=== PATIENT | female | born 1945 | race Caucasian/White ===

== ENCOUNTER 2018-02-25 17:40 | Emergency (ER) | payer MEDICARE, OTHER ==
[2018-02-25] MEDS ORDERED: Lidocaine 1% 30 ML SDV INFILT ONE (17:41)
[2018-02-25] MEDS ORDERED: Diphtheria,Pertussis(Acell),Tetanus Vaccine 0.5 ML SDV IM ONE (17:42)
--- NOTE | 2018-02-25 17:46 | EDM.PDOC ---
ED HPI GENERAL MEDICAL PROBLEM - General Chief Complaint: Lower Extremity Injury/Pain Stated Complaint: FELL-RT KNEE LACERATION Time Seen by Provider: 02/25/18 17:43 Source of Information: Reports: Patient History Limitations: Reports: No Limitations - History of Present Illness INITIAL COMMENTS - FREE TEXT/NARRATIVE: Patient tripped and fell in her garage, sustained a large right knee laceration and a right elbow skin tear. Tetanus booster is not up to date. Complains of right knee pain. S/p right TKR. No other injuries. Onset: Today Location: Reports: Lower Extremity, Right Quality: Reports: Dull Severity: Moderate Right knee Pain Score (Numeric/FACES): 5 - Related Data Allergies Allergy/AdvReac Type Severity Reaction Status Date / Time Penicillins Allergy Rash Verified 02/25/18 17:43 Home Meds: Home Meds Calcium Carbonate/Vitamin D3 [Calcium 500-Vit D3 200 Tablet] 1 each PO BIDM 02/06 [History] Cholecalciferol (Vitamin D3) [Vitamin D3] 2,000 units PO DAILY 11/06/12 [History ] Clotrimazole/Betamethasone Dip [Clotrimazole-Betamethasone Crm] 1 applic TOP DAILY PRN 11/06/12 [History] Cyanocobalamin (Vitamin B-12) [Vitamin B-12] 1,000 mcg IM Q30D 11/06/12 [History ] Ferrous Sulfate [Iron] 325 mg PO BID 11/06/12 [History] Lisinopril/Hydrochlorothiazide [Lisinopril-Hctz 20-25 mg Tab] 1 each PO DAILY [History] Lutein 20 mg PO DAILY 11/06/12 [History] Multivitamin [Multivitamins] 1 caplet PO DAILY 11/06/12 [History] PARoxetine [Paxil] 40 mg PO DAILY 11/06/12 [History] Zolpidem [Ambien] 10 mg PO BEDTIME PRN 11/06/12 [History] Acetaminophen/Butalbital/Caff [Fioricet 325-50-40 MG] 1 tab PO Q6H PRN 08/08/13 [History] Furosemide [Lasix] 20 mg PO DAILY 08/08/13 [History] Nystatin 1 applic TOP QID PRN 08/08/13 [History] PEG 400/Propylene Glycol [Systane Lubricant Gel] 1 drop EYEBOTH ASDIRECTED PRN 08/08/13 [History] buPROPion HCl [Wellbutrin Xl] 150 mg PO DAILY 08/08/13 [History] Aspirin [Low Dose Aspirin EC] 81 mg PO DAILY 11/22/14 [History] Ciprofloxacin HCl [Cipro] 500 mg PO BID 11/22/14 [History] Oxybutynin 5 mg PO TID PRN 11/22/14 [History] Meloxicam [Mobic] 15 mg PO DAILY 11/23/14 [History] Cephalexin [Keflex] 500 mg PO TID #30 capsule 02/25/18 [Rx] Past Medical History Other Cardiovascular History: SOB LAST SUMMER, WAS CHECKED OUT IN [place] W/ CARDIAC WORKUP ET EVERYTHING WAS NEGATIVE, NO REASON FOR THE SOB FOUND Other Respiratory History: PULMONARY EMBOLI Other ACID LEVELER History: D&C X 2 Other Musculoskeletal History: 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 ED EXAM, GENERAL - Physical Exam Exam: See Below Exam Limited By: No Limitations General Appearance: Alert, WD/WN, No Apparent Distress Ears: Normal External Exam Nose: Normal Inspection Throat/Mouth: No Airway Compromise Head: Atraumatic, Normocephalic Neck: Full Range of Motion Respiratory/Chest: No Respiratory Distress Peripheral Pulses: 2+: Dorsalis Pedis (R) Extremities: Other (15 cm superficial right knee laceration, mild tenderness; right elbow skin tear, normal ROM, non tender) Neurological: Alert, Normal Cognition, No Motor/Sensory Deficits Psychiatric: Normal Affect, Normal Mood ED TRAUMA EXTREMITY PROCEDURES - Laceration/Wound Repair Right Anterior Knee Lac/Wound Length In cm: 15 Appearance: Superficial, Clean Distal NVT: Neuro & Vascular Intact, No Tendon Injury Anesthetic Type: Local Local Anesthesia - Lidocaine (Xylocaine): 1% Plain Local Anesthetic Volume: 5cc Skin Prep: Saline, Other ([place]) Exploration/Debridement/Repair: No Foreign Material Found Closed With: Sutures Suture Size: 3-0 # of Sutures: 30 Suture Type: Nylon Tetanus Status Addressed: Yes Complications: No Right Elbow Lac/Wound Length In cm: 3 Appearance: Other (skin tear) Closed With: Steri-Strips Tetanus Status Addressed: Yes Complications: No Course - Vital Signs Last Recorded V/S: Last Vital Signs Temp 36.6 C 02/25/18 17:45 Pulse 61 02/25/18 17:45 Resp 20 02/25/18 17:45 BP 147/81 H 02/25/18 17:45 Pulse Ox 97 02/25/18 17:45 - Orders/Labs/Meds Orders: Active Orders 24 hr Category Date Time Status Vaccines to be Administered [RC] PER UNIT ROUTINE Care 02/25/18 17:42 Active Knee 1V or 2V Rt [CR] Stat Exams 02/25/18 17:41 Taken Bacitracin [Bacitracin Oint 1 GM] Med 02/25/18 18:51 Once 1 dose TOP ONETIME ONE cephALEXin [Keflex] Med 02/25/18 18:51 Once 500 mg PO ONETIME ONE Steri Strips Application [OM.PC] Routine Oth 02/25/18 18:52 Ordered Medication Orders Bacitracin (Bacitracin Oint 1 Gm) 1 dose TOP ONETIME ONE Stop: 02/25/18 18:52 Cephalexin (Keflex) 500 mg PO ONETIME ONE Stop: 02/25/18 18:52 Meds: Medications Generic Name Dose Route Start Last Admin Trade Name Freq PRN Reason Stop Dose Admin Bacitracin 1 dose 02/25/18 18:51 Bacitracin Oint 1 Gm TOP 02/25/18 18:52 ONETIME ONE Cephalexin 500 mg 02/25/18 18:51 Keflex PO 02/25/18 18:52 ONETIME ONE Discontinued Medications Generic Name Dose Route Start Last Admin Trade Name Freq PRN Reason Stop Dose Admin Diphtheria/Tetanus/Acell Pertussis 0.5 ml 02/25/18 17:42 02/25/18 17:57 Adacel IM 02/25/18 17:43 0.5 ml .ONCE ONE Administration - Radiology Interpretation Free Text/Narrative:: Right Knee XR: NAD (ED provider interpretation) Departure - Departure Time of Disposition: 18:56 Disposition: Home, Self-Care 01 Condition: Good Clinical Impression: Laceration of knee Qualifiers: Encounter type: initial encounter Laterality: right Qualified Code(s): S81.011A - Laceration without foreign body, right knee, initial encounter Skin tear of elbow without complication Qualifiers: Encounter type: initial encounter Laterality: right Qualified Code(s): S51.011A - Laceration without foreign body of right elbow, initial encounter - Discharge Information *PRESCRIPTION DRUG MONITORING PROGRAM REVIEWED*: No *COPY OF PRESCRIPTION DRUG MONITORING REPORT IN PATIENT PORFIRIO: Not Applicable Prescriptions: Cephalexin [Keflex] 500 mg PO TID #30 capsule Instructions: Laceration Care, Adult, Sutured Wound Care, Skin Tear Care, Easy- to-Read Referrals: Nancy Hassan, [employer] [Primary Care Provider] - 2 Weeks Forms: ED Department Discharge Additional Instructions: Fill prescription for Keflex and take as directed. Apply Bacitracin ointment daily until wound scabs over. Follow up in 14 days for suture removal, sooner with symptoms or signs of infection. - My Orders Last 24 Hours: My Active Orders 02/25/18 17:41 Knee 1V or 2V Rt [CR] Stat 02/25/18 17:42 Vaccines to be Administered [RC] PER UNIT ROUTINE 02/25/18 18:51 Bacitracin [Bacitracin Oint 1 GM] 1 dose TOP ONETIME ONE cephALEXin [Keflex] 500 mg PO ONETIME ONE 02/25/18 18:52 Steri Strips Application [OM.PC] Routine - Assessment/Plan Last 24 Hours: My Active Orders 02/25/18 17:41 Knee 1V or 2V Rt [CR] Stat 02/25/18 17:42 Vaccines to be Administered [RC] PER UNIT ROUTINE 02/25/18 18:51 Bacitracin [Bacitracin Oint 1 GM] 1 dose TOP ONETIME ONE cephALEXin [Keflex] 500 mg PO ONETIME ONE 02/25/18 18:52 Steri Strips Application [OM.PC] Routine
[2018-02-25 18:05] VITALS: BP 147/81
[2018-02-25] MEDS ORDERED: Cephalexin 500 MG Cap PO ONE (18:51)
[2018-02-25] MEDS ORDERED: Bacitracin Oint 1 GM U/D Packet TOP ONE (18:51)
--- NOTE | 2018-02-26 12:17 | CR ---
INDICATION: Injury. RIGHT KNEE: Frontal and lateral views of the right knee revealed a total knee arthroplasty in place which appears to be in good position and alignment, without a definite complicating process. A definite fracture or dislocation was not identified. There is as calcific or bony density along the cranial aspect of the patella posteriorly adjacent to the joint surface which may represent a hypertrophic spur or dystrophic calcification from previous surgery or injury. Fracture is felt to be less likely with this appearance. MTDD
== END 2018-02-25 19:20 | disposition home or self-care (01) ==
LOC: FB.ED 17:40
DX: S81.011A Laceration without foreign body, right knee, initial encounter (principal); S51.011A Laceration without foreign body of right elbow, initial encounter; Z23 Encounter for immunization; Z88.0 Allergy status to penicillin; Z79.82 Long term (current) use of aspirin; Z79.899 Other long term (current) drug therapy; W01.0XXA Fall on same level from slipping, tripping and stumbling without subsequent striking against object, initial encounter
CPT/HCPCS: 12005; 73560; 90471; 90715; 99283; A9270

== ENCOUNTER 2019-12-25 19:24 | Emergency (ER) | payer MEDICARE, OTHER ==
[2019-12-25 19:34] VITALS: BP 138/56; PULSE 60
--- NOTE | 2019-12-25 20:15 | EDM.PDOC ---
ED HPI GENERAL MEDICAL PROBLEM - General Chief Complaint: Wound Recheck Stated Complaint: open wound Time Seen by Provider: 12/25/19 19:30 Source of Information: Reports: Patient History Limitations: Reports: No Limitations - History of Present Illness INITIAL COMMENTS - FREE TEXT/NARRATIVE: Patient presented to the ED because of a wound dehiscence. She had a left knee surgery 3 days ago and noticed today that a portion of the wound is open. There is a serosanguinous fluid draining. right knee Pain Score (Numeric/FACES): 5 - Related Data Allergies Allergy/AdvReac Type Severity Reaction Status Date / Time Penicillins Allergy Rash Verified 12/25/19 19:32 Home Meds: Home Meds Cholecalciferol (Vitamin D3) [Vitamin D3] 2,000 units PO DAILY 11/06/12 [History] Clotrimazole/Betamethasone Dip [Clotrimazole-Betamethasone Crm] 1 applic TOP DAILY 11/06/12 [History] Cyanocobalamin (Vitamin B-12) [Vitamin B-12] 1,000 mcg IM Q30D 11/06/12 [History] Lisinopril/Hydrochlorothiazide [Lisinopril-Hctz 20-25 mg Tab] 1 each PO DAILY 11/06/12 [History] Lutein 20 mg PO DAILY 11/06/12 [History] Furosemide [Lasix] 20 mg PO Q48H 08/08/13 [History] Nystatin 1 applic TOP QID PRN 08/08/13 [History] PEG 400/Propylene Glycol [Systane Lubricant Gel] 1 drop EYEBOTH ASDIRECTED PRN 08/08/13 [History] buPROPion HCl [Wellbutrin Xl] 150 mg PO DAILY 08/08/13 [History] Aspirin [Low Dose Aspirin EC] 81 mg PO DAILY 11/22/14 [History] Oxybutynin 5 mg PO BID 11/22/14 [History] Escitalopram [Lexapro] 10 mg PO DAILY 02/25/18 [History] Melatonin 10 mg PO BEDTIME 02/25/18 [History] Metoprolol Succinate 25 mg PO DAILY 02/25/18 [History] Potassium Chloride 10 meq PO DAILY 02/25/18 [History] Rosuvastatin [Crestor] 10 mg PO DAILY 02/25/18 [History] amLODIPine [Norvasc] 2.5 mg PO DAILY 02/25/18 [History] Past Medical History HEENT History: Reports: Cataract, Impaired Vision Other Cardiovascular History: SOB LAST SUMMER, WAS CHECKED OUT IN [place] W/ CARDIAC WORKUP ET EVERYTHING WAS NEGATIVE, NO REASON FOR THE SOB FOUND Respiratory History: Reports: PE Other Respiratory History: PULMONARY EMBOLI Genitourinary History: Reports: Urinary Incontinence PUBLIC RELATIONS COORDINATOR History: Reports: Other PUBLIC RELATIONS COORDINATOR History: D&C X 2 Other Musculoskeletal History: 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 Neurological History: Reports: Migraines Psychiatric History: Reports: Anxiety, Depression Endocrine/Metabolic History: Reports: Obesity/BMI 30+ - Past Surgical History HEENT Surgical History: Reports: Cataract Surgery GI Surgical History: Reports: Cholecystectomy Social & Family History - Family History Family Medical History: Noncontributory - Tobacco Use Tobacco Use Status *Q: Never Tobacco User Second Hand Smoke Exposure: No - Caffeine Use Caffeine Use: Reports: Coffee - Recreational Drug Use Recreational Drug Use: No Review of Systems - Review of Systems Review Of Systems: See Below Constitutional: Reports: No Symptoms Eyes: Reports: No Symptoms Ears: Reports: No Symptoms Nose: Reports: No Symptoms Mouth/Throat: Reports: No Symptoms Respiratory: Reports: No Symptoms Cardiovascular: Reports: No Symptoms GI/Abdominal: Reports: No Symptoms Genitourinary: Reports: No Symptoms Musculoskeletal: Reports: No Symptoms Skin: Reports: Wound Neurological: Reports: No Symptoms ED EXAM, GENERAL - Physical Exam Exam: See Below Exam Limited By: No Limitations General Appearance: Alert, No Apparent Distress Eye Exam: Bilateral Eye: PERRL Ears: Normal External Exam, Normal Canal Nose: Normal Inspection, Normal Mucosa, No Blood Throat/Mouth: Normal Inspection, Normal Lips Head: Atraumatic, Normocephalic Neck: Normal Inspection, Supple, Non-Tender, Full Range of Motion Respiratory/Chest: No Respiratory Distress, Lungs Clear, Normal Breath Sounds Cardiovascular: Normal Peripheral Pulses, Regular Rate, Rhythm, No Edema, No Gallop, No JVD, No Murmur GI/Abdominal: Normal Bowel Sounds, Soft, Non-Tender, No Organomegaly, No Distention, No Abnormal Bruit Back Exam: Normal Inspection, Full Range of Motion Extremities: Normal Inspection, Normal Range of Motion, Non-Tender Neurological: Alert, Oriented, CN II-XII Intact, Normal Cognition Psychiatric: Normal Affect ED TRAUMA EXTREMITY PROCEDURES - Laceration/Wound Repair Right Knee Lac/Wound Length In cm: 9 Appearance: Superficial Distal NVT: Neuro & Vascular Intact Anesthetic Type: Local Local Anesthesia - Lidocaine (Xylocaine): 1% Plain Local Anesthetic Volume: 2cc Suture Size: 3-0 # of Sutures: 14 Suture Type: Silk, Other (P) Course - Vital Signs Last Recorded V/S: Last Vital Signs Temp 36.5 C 12/25/19 19:30 Pulse 60 12/25/19 19:30 Resp 17 12/25/19 19:30 BP 138/56 L 12/25/19 19:30 Pulse Ox 95 12/25/19 19:30 Departure - Departure Time of Disposition: 20:15 Disposition: Home, Self-Care 01 Condition: Good Clinical Impression: Wound dehiscence - Discharge Information Instructions: Wound Dehiscence, [id number] Forms: ED Department Discharge Additional Instructions: Please read instructions on wound dehiscence No need to apply an antibiotic ointment Keep your appointment for the wound recheck Sepsis Event Note (ED) - Evaluation Sepsis Screening Result: No Definite Risk - Focused Exam Vital Signs: Vital Signs Temp Pulse Resp BP Pulse Ox 12/25/19 19:30 36.5 C 60 17 138/56 L 95
== END 2019-12-25 20:40 | disposition home or self-care (01) ==
LOC: FB.ED 19:24
DX: T81.31XA Disruption of external operation (surgical) wound, not elsewhere classified, initial encounter (principal); F41.9 Anxiety disorder, unspecified; F32.9 Major depressive disorder, single episode, unspecified; E66.9 Obesity, unspecified; Z68.42 Body mass index [BMI] 45.0-49.9, adult; Z88.0 Allergy status to penicillin; Z79.899 Other long term (current) drug therapy; Z79.82 Long term (current) use of aspirin
CPT/HCPCS: 12004; 99283; J2001; 99282

== ENCOUNTER 2023-11-26 07:40 | Inpatient (IN) | payer MEDICARE ==
[2023-11-26] MEDS ORDERED: Acetaminophen/Codeine 300-30 MG Tab PO PRN (12:11)
[2023-11-26] MEDS ORDERED: Furosemide 20 MG Tab PO PRN (12:11)
[2023-11-26] MEDS ORDERED: Albuterol 6.7 GM Inhaler INH PRN (12:11)
[2023-11-26] MEDS ORDERED: Nystatin Topical Powder 15 GM Bottle TOP PRN (12:22)
[2023-11-26] MEDS ORDERED: Carboxymethylcellulose Sodium 0.5% Ophth Soln 15 ML Bottle EYEBOTH PRN (12:32)
[2023-11-26] MEDS: Diclofenac Sodium 1% Gel 100 GM Tube TOP SCH (14:33)
[2023-11-26] MEDS: Acetaminophen 500 MG Tab PO PRN (14:33)
[2023-11-26] MEDS: oxyCODONE 5 MG Tab PO ONE (15:18)
[2023-11-26] MEDS: Potassium Chloride 10 MEQ Tab.ER PO SCH (18:28)
[2023-11-26] MEDS: Formoterol/Mometasone 100-5 MCG 8.8 GM Inhaler INH SCH (21:39)
[2023-11-26] MEDS: Apixaban 5 MG Tab PO SCH (21:40)
[2023-11-26] MEDS: Escitalopram 10 MG Tab PO SCH (21:40)
[2023-11-26] MEDS: traZODone 50 MG Tab PO SCH (21:41)
[2023-11-26] MEDS: Oxybutynin 5 MG Tab PO SCH (21:41)
[2023-11-26] MEDS: Pregabalin 50 MG Cap PO SCH (21:47)
[2023-11-26] MEDS: Acetaminophen 500 MG Tab PO SCH (21:48)
[2023-11-26] MEDS: oxyCODONE 5 MG Tab PO PRN (21:49)
[2023-11-26] MEDS: LIDOCAINE PATCH TRDERM SCH (21:55)
[2023-11-26] MEDS: Betamethasone Dipropionate/Clotrimazole 0.05-1% Crm 15 GM Tube TOP SCH (21:56)
[2023-11-27] MEDS ORDERED: CLOTRIMAZOLE TOP PRN (08:39)
[2023-11-27] MEDS ORDERED: [UNRECOGNIZED DRUG - OTHER] TOP PRN (08:39)
[2023-11-27] MEDS ORDERED: Diclofenac Sodium 1% Gel 100 GM Tube TOP PRN (08:40)
[2023-11-27] MEDS: Rosuvastatin 10 MG Tab PO SCH (08:44)
[2023-11-27] MEDS: Furosemide 20 MG Tab PO SCH (08:45)
[2023-11-27] MEDS: Ascorbic Acid 500 MG Tab PO SCH (08:45)
[2023-11-27] MEDS: Cyanocobalamin (Vitamin B12) 1,000 MCG Tab PO SCH (08:45)
[2023-11-27] MEDS: Metoprolol Succinate 25 MG Tab.ER PO SCH (08:45)
[2023-11-27] MEDS: Lidocaine 4% 1 each Patch TOP SCH (08:46)
[2023-11-27] MEDS: buPROPion 150 MG Tab.ER PO SCH (08:46)
[2023-11-27] MEDS: Cholecalciferol (Vitamin D3) 25 MCG Tab PO SCH (08:46)
[2023-11-27] MEDS: Methocarbamol 500 MG Tab PO PRN (08:46)
[2023-11-29] MEDS: Polyethylene Glycol 3350 Powder 17 GM Packet PO PRN (08:54)
[2023-11-29] MEDS: Benzonatate 100 MG Cap PO PRN (08:57)
[2023-11-29] MEDS ORDERED: Loratadine 10 MG Tab PO PRN (09:11)
[2023-11-29] MEDS ORDERED: CLOTRIMAZOLE TOP PRN (09:44)
[2023-11-29] MEDS ORDERED: [UNRECOGNIZED DRUG - OTHER] TOP PRN (09:44)
[2023-11-29] MEDS ORDERED: NYSTATIN TOP PRN (09:44)
[2023-11-29] MEDS ORDERED: MENTHOL TOP PRN (09:45)
[2023-11-29] MEDS ORDERED: METHYL SALICYLATE TOP PRN (09:45)
[2023-11-29] MEDS ORDERED: Acetaminophen 650 MG Tab.ER PO SCH (13:45)
[2023-11-29] MEDS: Acetaminophen 650 MG Tab.ER PO SCH (20:58)
[2023-12-04 12:07] VITALS: BP 121/72; PULSE 62
== END 2023-12-04 13:00 | disposition home health service (06) | DRG 560 ==
LOC: FB.MS 12:04
PROVIDERS: ADMIT Family Medicine; ATTEND Internal Medicine
DX: S32.059D Unspecified fracture of fifth lumbar vertebra, subsequent encounter for fracture with routine healing (principal); I50.32 Chronic diastolic (congestive) heart failure; Z68.41 Body mass index [BMI] 40.0-44.9, adult; H54.7 Unspecified visual loss; G47.33 Obstructive sleep apnea (adult) (pediatric); M19.90 Unspecified osteoarthritis, unspecified site; G43.909 Migraine, unspecified, not intractable, without status migrainosus; F41.9 Anxiety disorder, unspecified; F32.A Depression, unspecified; Z96.659 Presence of unspecified artificial knee joint; W19.XXXD Unspecified fall, subsequent encounter; E66.01 Morbid (severe) obesity due to excess calories; S22.089D Unspecified fracture of T11-T12 vertebra, subsequent encounter for fracture with routine healing; Z87.01 Personal history of pneumonia (recurrent); Z88.8 Allergy status to other drugs, medicaments and biological substances; Z79.899 Other long term (current) drug therapy; Z79.01 Long term (current) use of anticoagulants; Z79.51 Long term (current) use of inhaled steroids; Z98.49 Cataract extraction status, unspecified eye; Z98.890 Other specified postprocedural states; S06.5XAD Traumatic subdural hemorrhage with loss of consciousness status unknown, subsequent encounter; Z86.711 Personal history of pulmonary embolism
CPT/HCPCS: 94150; 97110-GP; 97161-GP; 97165-GO; 97530-GP; 97535-GO; 97760-GP; 99305; 99315; A9270-GY